=== PATIENT | male | born 1985 | race Caucasian/White ===

== ENCOUNTER 2018-11-11 07:15 | Emergency (ER) | payer OTHER ==
[~2018-11-11] VITALS: Ht 185.4 cm; Wt 102.1 kg
--- NOTE | 2018-11-11 07:34 | PHYS DOC ---
Past History Past Medical History: No Pertinent History Past Surgical History: Appendectomy Adult General Chief Complaint Chief Complaint: OTHER COMPLAINTS HPI HPI Patient is a 33-year-old male who presents to the emergency department for evaluation. He states last week he was visiting his son in the hospital, where his son had gastroenteritis. He states that he seems to have contracted the same viral illness, as for the past 48 hours he has had numerous episodes of watery diarrhea. He has not had any significant abdominal pain, other than some intermittent mild stomach cramping before he has bowel movements. He has not had any vomiting, fevers, or chills. However, he states that last night, he began experiencing intense perianal pain, which is what brought him to the emergency department for evaluation. He has not had any bloody, or particularly malodorous stool, and he has not had any recent travel or antibiotic use. There are no alleviating or exacerbating factors to his symptoms. Review of Systems Review of Systems Constitutional: Denies fever or chills [] Eyes: Denies change in visual acuity, redness, or eye pain [] HENT: Denies nasal congestion or sore throat [] Respiratory: Denies cough or shortness of breath [] Cardiovascular: The patient denies any shortness of breath, chest pain, palpitations, or orthopnea[] GI: No additional information not addressed in HPI [] : Denies dysuria or hematuria [] Musculoskeletal: Denies back pain or joint pain [] Integument: Denies rash or skin lesions [] Neurologic: Denies headache, focal weakness or sensory changes [] Endocrine: Denies polyuria or polydipsia [] All other systems were reviewed and found to be within normal limits, except as documented in this note. Physical Exam Physical Exam PHYSICAL EXAM: CONSTITUTIONAL: Well developed, well nourished HEAD: normocephalic, atraumatic EENT: PERRL, EOMI. Conjunctivae normal color, sclerae non-icteric; moist mucous membranes. NECK: Supple, non-tender; no meningismus. LUNGS: Lungs CTA, breathing even and unlabored. Normal air movement. HEART: Regular rate and rhythm, no murmur CHEST: No deformity; non-tender ABDOMEN: The abdomen is soft, and non-tender, no masses or bruits. EXTREM: Normal ROM; no deformity, no calf tenderness. Normal pulses palpable in all extremities. There is no pedal edema. SKIN: No rash; no diaphoresis NEURO: Alert; normal speech and cognition; CN's grossly intact; strength grossly intact without focal deficit. BACK: No CVA TTP. RECTAL EXAM: Perianal inspection is unremarkable, without any obvious hemorrhoids or fissures. However, the patient is intolerant to rectal exam, secondary to significant pain on attempted digital insertion. There were no definite palpable masses or fluctuant lesions noted. The perineum is otherwise unremarkable. Current Patient Data Lab Results Laboratory Tests Test 11/11/18 07:30 11/11/18 07:38 Stool Occult Blood Positive White Blood Count 6.8 x10^3/uL Red Blood Count 5.37 x10^6/uL Hemoglobin 16.8 g/dL Hematocrit 48.1 % Mean Corpuscular Volume 90 fL Mean Corpuscular Hemoglobin 31 pg Mean Corpuscular Hemoglobin Concent 35 g/dL Red Cell Distribution Width 13.4 % Platelet Count 174 x10^3/uL Neutrophils (%) (Auto) 62 % Lymphocytes (%) (Auto) 17 % Monocytes (%) (Auto) 20 % Eosinophils (%) (Auto) 2 % Basophils (%) (Auto) 1 % Neutrophils # (Auto) 4.2 x10^3uL Lymphocytes # (Auto) 1.1 x10^3/uL Monocytes # (Auto) 1.3 x10^3/uL Eosinophils # (Auto) 0.1 x10^3/uL Basophils # (Auto) 0.0 x10^3/uL Sodium Level 140 mmol/L Potassium Level 4.0 mmol/L Chloride Level 104 mmol/L Carbon Dioxide Level 27 mmol/L Anion Gap 9 Blood Urea Nitrogen 12 mg/dL Creatinine 1.0 mg/dL Estimated GFR (Cockcroft-Gault) 86.1 BUN/Creatinine Ratio 12 Glucose Level 100 mg/dL Calcium Level 8.8 mg/dL Total Bilirubin 1.0 mg/dL Aspartate Amino Transf (AST/SGOT) 22 U/L Alanine Aminotransferase (ALT/SGPT) 27 U/L Alkaline Phosphatase 73 U/L Total Protein 7.2 g/dL Albumin 4.2 g/dL Albumin/Globulin Ratio 1.4 Current Medications Medications (Trade) Dose Ordered Sig/Iván Route PRN Reason Start Time Stop Time Status Last Admin Dose Admin Morphine Sulfate (Morphine 4mg Syringe) 4 mg 1X ONCE IV 3/19/19 08:00 11/11/18 08:01 DC 11/11/18 07:42 Morphine Sulfate (Morphine 4mg Syringe) 4 mg STK-MED ONCE .ROUTE 11/11/18 07:36 11/11/18 07:37 DC Iohexol (Omnipaque 300 Mg/ml) 75 ml 1X ONCE IV 11/11/18 08:40 11/11/18 08:41 DC 11/11/18 08:26 EKG EKG [] Radiology/Procedures Radiology/Procedures [PROCEDURE: CT ABD PELV W/ IV CONTRST ONLY PQRS Compliance statement: One or more of the following individualized dose reduction techniques were utilized for this examination: 1. Automated exposure control. 2. Adjustment of the mA and/or kV according to patient size. 3. Use of iterative reconstruction technique. Indication:Rectal pain TECHNIQUE: CT abdomen and pelvis with IV contrast with multiplanar reformats. COMPARISON: None FINDINGS: Heart is normal in size. No pericardial or pleural effusion. Clear lung bases. Liver, spleen, gallbladder, pancreas, left adrenal within normal limits. 1.2 cm nodule is seen in the right adrenal gland (series 2 image 26). No nephrolithiasis or hydronephrosis. No enlarged retroperitoneal or pelvic adenopathy. No bowel obstruction. Appendix is not visualized. Fluid-filled scattered small bowel loops are seen, nonspecific. No pneumoperitoneum. The prostate and seminal vesicles show no large mass. Bladder wall thickening is seen of the dome of the bladder. Shotty mesenteric lymph nodes, nonspecific likely reactive. No suspicious bony lesion. IMPRESSION: 1. No evidence of proctitis or colitis. No bowel obstruction. 2. Small nodule in the right adrenal gland likely adrenal adenoma. Nonemergent MRI of the abdomen with IV contrast recommended for definite confirmation. 3. Mild wall thickening of the dome of the urinary bladder may be secondary to cystitis. Clinically correlate with urinalysis. ] Course & Med Decision Making Course & Med Decision Making Pertinent Labs and Imaging studies reviewed. (See chart for details) [9:00 AM: Pt condition remains stable. He is feeling better after analgesia. I discussed test results with patient, uncertain etiology for symptoms, need for close f/u, and return precautions. ] Dragon Disclaimer Dragon Disclaimer This electronic medical record was generated, in whole or in part, using a voice recognition dictation system. Departure Departure: Impression: Primary Impression: Rectal pain Additional Impression: Diarrhea Disposition: 01 HOME, SELF-CARE Condition: STABLE Patient Instructions: Diarrhea, Proctitis Scripts Acetaminophen With Codeine (TYLENOL WITH CODEINE #3 TABLET) 1 Each Tablet 1 TAB PO Q6HRS for Pain, #10 TAB Prov: SHARLENE TREVIÑO MD 11/11/18 Metronidazole (FLAGYL) 500 Mg Tablet 1 TAB PO BID for -, #14 TAB Prov: SHARLENE TREVIÑO MD 11/11/18 Ciprofloxacin Hcl (CIPRO) 500 Mg Tablet 1 TAB PO BID for -, #14 TAB Prov: SHARLENE TREVIÑO MD 11/11/18 Problem Qualifiers SHARLENE TREVIÑO MD Nov 11, 2018 07:34
[2018-11-11] MEDS ORDERED: MORPHINE SULFATE 4 MG/ML DISP.SYRIN. ONE (07:36)
[2018-11-11 07:50] LABS: BASO % 1 % (0-3); EOS # 0.1 x10^3/uL (0.0-0.7); EOS % 2 % (0-3); HEMATOCRIT 48.1 % (39.0-53.0); HEMOGLOBIN 16.8 g/dL (13.0-17.5); LYMPH # 1.1 x10^3/uL (1.0-4.8); LYMPH % 17 % (24-48); MEAN CORPUSCULAR HEMOGLOBIN 31 pg (25-35); MEAN CORPUSCULAR HGB CONC 35 g/dL (31-37); MEAN CORPUSCULAR VOLUME 90 fL (79-100); MONO # 1.3 x10^3/uL (0.0-1.1); MONO % 20 % (0-9); NEUT # 4.2 x10^3uL (1.8-7.7); NEUT % 62 % (31-73); PLATELET COUNT 174 x10^3/uL (140-400); RED BLOOD COUNT 5.37 x10^6/uL (4.30-5.70); RED CELL DISTRIBUTION WIDTH 13.4 % (11.5-14.5); WHITE BLOOD COUNT 6.8 x10^3/uL (4.0-11.0)
[2018-11-11] MEDS ORDERED: MORPHINE SULFATE 4 MG/ML DISP.SYRIN. IV ONE (08:00)
[2018-11-11 08:04] LABS: ALBUMIN 4.2 g/dL (3.4-5.0); ALBUMIN/GLOBULIN RATIO 1.4 (1.0-1.7); CALCIUM 8.8 mg/dL (8.5-10.1); GFR 86.1; TOTAL PROTEIN 7.2 g/dL (6.4-8.2)
[2018-11-11] MEDS ORDERED: IOHEXOL 300 MG/ML 75 ML VIAL. IV ONE (08:40)
[2018-11-11 08:46] LABS: FECAL OB PT POSITIVE (NEG)
--- NOTE | 2018-11-11 08:51 | RAD ---
PQRS Compliance statement: One or more of the following individualized dose reduction techniques were utilized for this examination: 1. Automated exposure control. 2. Adjustment of the mA and/or kV according to patient size. 3. Use of iterative reconstruction technique. Indication:Rectal pain TECHNIQUE: CT abdomen and pelvis with IV contrast with multiplanar reformats. COMPARISON: None FINDINGS: Heart is normal in size. No pericardial or pleural effusion. Clear lung bases. Liver, spleen, gallbladder, pancreas, left adrenal within normal limits. 1.2 cm nodule is seen in the right adrenal gland (series 2 image 26). No nephrolithiasis or hydronephrosis. No enlarged retroperitoneal or pelvic adenopathy. No bowel obstruction. Appendix is not visualized. Fluid-filled scattered small bowel loops are seen, nonspecific. No pneumoperitoneum. The prostate and seminal vesicles show no large mass. Bladder wall thickening is seen of the dome of the bladder. Shotty mesenteric lymph nodes, nonspecific likely reactive. No suspicious bony lesion. IMPRESSION: 1. No evidence of proctitis or colitis. No bowel obstruction. 2. Small nodule in the right adrenal gland likely adrenal adenoma. Nonemergent MRI of the abdomen with IV contrast recommended for definite confirmation. 3. Mild wall thickening of the dome of the urinary bladder may be secondary to cystitis. Clinically correlate with urinalysis. Electronically signed by: Jose Luis Aldrich DO (11/11/2018 8:48 AM) [facility]
[2018-11-11] MEDS ORDERED: ACET-704 PO (09:05)
[2018-11-11] MEDS ORDERED: METR500T PO (09:05)
[2018-11-11] MEDS ORDERED: CIPR500T94 PO (09:05)
[2018-11-11 09:15] LABS: COLOR,URINE AMBER
[2018-11-11 09:16] LABS: BACTERIA,URINE 0 /HPF (0-FEW); BILIRUBIN,URINE NEG (NEG); CLARITY,URINE CLEAR; GLUCOSE,URINE NEG (NEG); NITRITE,URINE NEG (NEG); RBC,URINE 0 /HPF (0-2); UROBILINOGEN,URINE 0.2 mg/dL (0.2 mg/dL); WBC,URINE RARE /HPF (0-4)
[2018-11-11 09:24] VITALS: BP 126/61
== END 2018-11-11 09:15 | disposition home or self-care (01) ==
LOC: ER 07:15
DX: R19.7 Diarrhea, unspecified (principal); K62.89 Other specified diseases of anus and rectum; Z90.89 Acquired absence of other organs
CPT/HCPCS: 36415; 74177; 80053; 81001; 82274; 85025; 96374; 99284; J2270; Q9967